=== PATIENT | female | born 1970 | race Caucasian/White ===

== ENCOUNTER 2019-01-22 15:03 | Emergency (ER) | payer MEDICAID ==
[~2019-01-22] VITALS: Ht 162.6 cm; Wt 104.8 kg
[2019-01-22 15:15] VITALS: BP_SYST 175
[2019-01-22 15:53] LABS: BASOPHILS % (AUTO) 0.5 % (0.0-2.0); EOSINOPHILS # (AUTO) 0.2 K/uL (0.0-0.4); EOSINOPHILS % (AUTO) 2.9 % (0.0-4.0); HEMOGLOBIN 13.5 g/dL (12.0-16.0); LYMPHOCYTES # (AUTO) 2.4 K/uL (1.0-5.5); LYMPHOCYTES % (AUTO) 28.2 % (20.5-51.5); MEAN CORPUSCULAR HEMOGLOBIN 31 pg (27-31); MEAN CORPUSCULAR HGB CONC 34 % (32-36); MEAN CORPUSCULAR VOLUME 93 fL (79.0-98.0); MONOCYTES # (AUTO) 0.5 K/uL (0.0-1.0); NEUTROPHILS # (AUTO) 5.2 K/uL (1.8-7.7); NEUTROPHILS % (AUTO) 62.4 % (40.0-70.0); PLATELET COUNT (AUTO) 284 K/uL (130-430); RED BLOOD CELL COUNT(AUTO) 4.31 MIL/uL (4.2-6.2); RED CELL DISTRIBUTION WIDTH 13.8 % (9.0-15.0); WHITE BLOOD COUNT (AUTO) 8.4 K/uL (4.8-10.8)
[2019-01-22 15:59] LABS: CALCIUM 9.2 mg/dL (8.4-11.0); CREATININE 0.57 mg/dL (0.55-1.30); POTASSIUM 3.4 mmol/L (3.5-5.1)
[2019-01-22 16:07] LABS: PROTHROMBIN TIME 9.7 SECS (9.5-12.5)
[2019-01-22 16:11] LABS: ALBUMIN 4.1 g/dL (3.4-4.8); TOTAL BILIRUBIN 0.5 mg/dL (0.0-1.0)
[2019-01-22] MEDS ORDERED: MECLIZINE HCL 25 MG TABLET (ANITVERT) PO ONE (16:15)
[2019-01-22] MEDS ORDERED: METOCLOPRAMIDE HCL 10 MG/2 ML VIAL IVP ONE (16:15)
[2019-01-22 18:01] VITALS: BP_SYST 175
== END 2019-01-22 18:01 | disposition home or self-care (01) ==
LOC: SED 15:03
DX: R42 Dizziness and giddiness (principal); H53.8 Other visual disturbances; R11.0 Nausea
CPT/HCPCS: 36415; 70450; 71045; 80053; 81025; 84484; 84703; 85025; 85610; 85730; 93005; 96372; 99284; J2765; J8597; 96374

== ENCOUNTER 2021-01-13 11:54 | Emergency (ER) | payer MEDICAID, SELFPAY ==
[~2021-01-13] VITALS: Ht 162.6 cm; Wt 103.4 kg
--- NOTE | 2021-01-13 12:12 | NUR ---
Patient to ER bed tent 1 to gown for evaluation. Side rails up.
[2021-01-13 12:13] VITALS: BP_SYST 150
--- NOTE | 2021-01-13 12:20 | NUR ---
Pt brought by self, A&Ox4, pt presents to ER with cough/congestion x 2 days, afebrile, skin pink and warm, cap refill <3, VSS.
--- NOTE | 2021-01-13 12:30 | NUR ---
Dr Duncan evaluating patient at bedside
[2021-01-13] MEDS ORDERED: BENZ-16 PO (12:34)
[2021-01-13] MEDS ORDERED: PHEDM120 PO (12:34)
--- NOTE | 2021-01-13 13:21 | NUR ---
Patient given written and verbal discharge instructions and verbalizes understanding. ER MD discussed with patient the results and treatment provided. Patient in stable condition. ID arm band removed. Rx of Tessalon, Phenergan given. Patient educated on pain management and to follow up with PMD. Pain Scale 2/10. Opportunity for questions provided and answered. Medication side effect fact sheet provided.
[2021-01-13 13:22] VITALS: BP_SYST 150
== END 2021-01-13 13:22 | disposition home or self-care (01) ==
LOC: SED 11:54
DX: U07.1 COVID-19 (principal); J06.9 Acute upper respiratory infection, unspecified; Z79.899 Other long term (current) drug therapy
CPT/HCPCS: 99283; C9803; U0003